=== PATIENT | male | born 1995 | race Caucasian/White ===

== ENCOUNTER 2017-04-04 11:36 | Emergency (ER) | payer BC, OTHER ==
--- NOTE | 2017-04-04 11:51 | EDM.PDOC ---
ED HPI GENERAL MEDICAL PROBLEM - General Chief Complaint: Skin Complaint Stated Complaint: "TICK BITE" Time Seen by Provider: 04/04/17 11:38 Source of Information: Reports: Patient, RN, RN Notes Reviewed History Limitations: Reports: No Limitations - History of Present Illness INITIAL COMMENTS - FREE TEXT/NARRATIVE: Patient presents to the emergency room [facility] concerned about an infection in his scalp from a tick bite. The patient states he removed the tick from his right lower posterior scalp about 4 days ago. The patient states the entire tick was removed. The patient states she's noticed increased swelling at the affected site and also some swelling along the posterior lymph node chain. The patient denies any fevers. No suspicious rashes. Patient denies any chills. The patient states the affected site is tender to deep palpation. No other symptoms. Onset Date: 03/24/17 - Related Data Home Meds: Home Meds Cephalexin 500 mg PO TID #24 capsule 04/04/17 [Rx] ED ROS GENERAL - Review of Systems Review Of Systems: See Below Constitutional: Denies: Fever, Chills, Weakness Respiratory: Denies: Shortness of Breath, Cough Cardiovascular: Denies: Chest Pain, Palpitations GI/Abdominal: Denies: Diarrhea, Nausea, Vomiting Skin: Reports: Wound, Lumps Neurological: Reports: No Symptoms. Denies: Dizziness, Headache, Numbness, Paresthesia, Tingling ED EXAM, SKIN/RASH Exam: See Below Exam Limited By: No Limitations General Appearance: No: Alert, No Apparent Distress Eye Exam: Bilateral Eye: EOMI, Normal Fundi, PERRL Head: Atraumatic, Normocephalic Respiratory/Chest: No Respiratory Distress, Lungs Clear, Normal Breath Sounds Cardiovascular: Regular Rate, Rhythm GI/Abdominal: Normal Bowel Sounds, Soft, Non-Tender Neurological: Alert, Oriented Skin: Warm, Dry, Intact, Normal Color, No Rash, Wound/Incision (Posterior right lower scalp; erythema present; tender to palpation; no suspicious rash; swollen lymph nodes along posterior cervical chain) Location, Skin: Head Characteristics: Erythematous Associated features: Tenderness, Wwelling Lymphatic: Adenopathy Course - Orders/Labs/Meds Orders: Active Orders 24 hr Category Date Time Status LYME/B.BURGDORFERI IGG/IGM [REF] Stat Lab 04/04/17 11:51 Ordered Departure - Departure Time of Disposition: 11:58 Disposition: Home, Self-Care 01 Condition: good Clinical Impression: Cervical lymphadenopathy Tick bite of head Qualifiers: Encounter type: initial encounter Qualified Code(s): S00.96XA - Insect bite ( nonvenomous) of unspecified part of head, initial encounter; W57.XXXA - Bitten or stung by nonvenomous insect and other nonvenomous arthropods, initial encounter - Discharge Information Prescriptions: Cephalexin 500 mg PO TID #24 capsule Instructions: Insect Bite Referrals: PCP,None [Primary Care Provider] - Forms: ED Department Discharge Additional Instructions: 1. Stay well hydrated and rest 2. Take antibiotics for the full coarse, even if you are feeling better 3. Will contact you when blood work results are back 4. See your Primary as symptoms warrant - Problem List Review Problem List Initiated/Reviewed/Updated: Yes - My Orders Last 24 Hours: My Active Orders 04/04/17 11:51 LYME/B.BURGDORFERI IGG/IGM [REF] Stat - Assessment/Plan Last 24 Hours: My Active Orders 04/04/17 11:51 LYME/B.BURGDORFERI IGG/IGM [REF] Stat
[2017-04-04] MEDS ORDERED: Take Home: Cephalexin 250 MG Cap, 4 Cap Pack PO ONE (11:54)
[2017-04-04 14:39] VITALS: BP 153/80
== END 2017-04-04 12:10 | disposition home or self-care (01) ==
LOC: VM.ED 11:36
DX: S00.96XA Insect bite (nonvenomous) of unspecified part of head, initial encounter (principal); R59.0 Localized enlarged lymph nodes; W57.XXXA Bitten or stung by nonvenomous insect and other nonvenomous arthropods, initial encounter
CPT/HCPCS: 36415; 86618; 99282; A9270